=== PATIENT | female | born 1980 | race African-American/Black ===

== ENCOUNTER → 2017-03-28 | Outpatient (CLI) | payer SELFPAY | END | disposition home or self-care (01) | LOC: RAD 09:00 | DX: Z3A.21 21 weeks gestation of pregnancy (principal); D25.1 Intramural leiomyoma of uterus; O09.90 Supervision of high risk pregnancy, unspecified, unspecified trimester; O99.210 Obesity complicating pregnancy, unspecified trimester; O34.29 Maternal care due to uterine scar from other previous surgery | CPT/HCPCS: 76811 ==

== ENCOUNTER → 2017-04-26 | Outpatient (CLI) | payer SELFPAY | END | disposition home or self-care (01) | LOC: RAD 09:00 | DX: D21.9 Benign neoplasm of connective and other soft tissue, unspecified (principal); Z3A.25 25 weeks gestation of pregnancy; O09.90 Supervision of high risk pregnancy, unspecified, unspecified trimester; O99.210 Obesity complicating pregnancy, unspecified trimester | CPT/HCPCS: 76816 ==

== ENCOUNTER 2017-08-03 08:30 | Inpatient (IN) | payer OTHER ==
[2017-08-03] VITALS (7 sets, daily range): BP systolic 127–152; BP diastolic 78–93
[~2017-08-03] VITALS: Ht 165.1 cm; Wt 104.5 kg
[~2017-08-03 08:30] MED LIST: PRENATAL TABLE1 EAC3 PO
[2017-08-03 10:21] LABS: BASOPHIL (%) 0.3 % (0-1); EOSINOPHIL (%) 0.7 % (0-5); EOSINOPHIL COUNT 0.1 K/uL (0-0.3); HEMATOCRIT 39.6 % (36.0-46.0); HEMOGLOBIN 13.3 G/DL (11.9-15.5); IMMATURE GRANULOCYTE (%) 0.8 % (0.0-0.7); LYMPHOCYTE (%) 20.1 % (15-42); LYMPHOCYTE COUNT 1.5 K/uL (1.0-2.8); MCH 29.2 PG (29.0-34.0); MCHC 33.6 G/DL (30.0-36.0); MONOCYTE (%) 8.8 % (3-12); MONOCYTE COUNT 0.7 K/uL (0-0.8); NEUTROPHIL (%) 69.3 % (45-76); NEUTROPHIL COUNT 5.3 K/uL (1.8-6.4); PLATELET COUNT 184 K/uL (156-360); RBC DIS.WIDTH-CV 14.5 % (11.8-14.6); RBC DIS.WIDTH-SD 46.2 % (39-53); RED BLOOD COUNT 4.55 M/uL (3.80-5.20); WHITE BLOOD COUNT 7.7 K/uL (4.1-10.2)
[2017-08-04 00:05] VITALS: BP 128/76
[2017-08-04 02:48] VITALS: BP 136/80
[2017-08-04 03:57] LABS: BASOPHIL (%) 0.2 % (0-1); EOSINOPHIL (%) 0 % (0-5); HEMATOCRIT 35.6 % (36.0-46.0); HEMOGLOBIN 11.9 G/DL (11.9-15.5); IMMATURE GRANULOCYTE (%) 0.7 % (0.0-0.7); LYMPHOCYTE (%) 14.4 % (15-42); LYMPHOCYTE COUNT 1.8 K/uL (1.0-2.8); MCHC 33.4 G/DL (30.0-36.0); MCV 86.8 FL (83-99); MONOCYTE (%) 5.5 % (3-12); MONOCYTE COUNT 0.7 K/uL (0-0.8); NEUTROPHIL (%) 79.2 % (45-76); PLATELET COUNT 181 K/uL (156-360); RBC DIS.WIDTH-CV 14.3 % (11.8-14.6); WHITE BLOOD COUNT 12.6 K/uL (4.1-10.2)
[2017-08-04 04:07] LABS: CHLORIDE 103 mEq/L (99-109); POTASSIUM 3.8 mEq/L (3.7-5.4); SODIUM 135 mEq/L (136-147)
[2017-08-04 04:10] LABS: GLUCOSE 109 mg/dL (70-99); TOTAL PROTEIN 5.9 g/dL (6.4-8.3)
[2017-08-04 04:12] LABS: TOTAL BILIRUBIN 0.4 mg/dL (0.0-1.0)
[2017-08-04 04:13] LABS: ALKALINE PHOSPHATASE 133 IU/L (3-129); CREATININE 0.7 mg/dL (0.6-1.3); GFR ESTIMATE (CALCULATED) > 59 mL/min/
[2017-08-04 04:14] LABS: UREA NITROGEN (BUN) 7 mg/dL (9-23)
[2017-08-04 04:15] LABS: AST (GOT) 20 IU/L (2-34)
[2017-08-04 04:16] LABS: ALT (GPT) 9 IU/L (3-49)
[2017-08-04 07:39] VITALS: BP 157/84
[2017-08-04 10:54] VITALS: BP 119/72
[2017-08-04 15:00] VITALS: BP 129/74
[2017-08-04 21:28] VITALS: BP 118/70
[2017-08-05 07:34] VITALS: BP 137/95
[2017-08-05 12:11] VITALS: BP 143/84
[2017-08-05 15:21] VITALS: BP 140/83
[2017-08-05 19:00] VITALS: BP 139/93
[2017-08-05 22:56] VITALS: BP 133/77
[2017-08-06] VITALS (9 sets, daily range): BP systolic 130–175; BP diastolic 77–88
[2017-08-07 03:25] VITALS: BP 156/95
[2017-08-07 07:41] VITALS: BP 138/99
[2017-08-07] MEDS ORDERED: ENDOCET 5-3251 EACH PO (11:34)
[2017-08-07] MEDS ORDERED: IBUPROFEN800 MG PO (11:34)
[2017-08-07 13:38] VITALS: BP 157/99
[2017-08-07 14:57] VITALS: BP 149/94
== END 2017-08-07 18:15 | disposition home or self-care (01) | DRG 765 ==
LOC: 2SOUTH 08:30 → 2WEST 09:08 → 2SOUTH 09:48 → 2WEST 08-07 18:15
PROVIDERS: Obstetrics & Gynecology
PROC: 10D00Z1 Extraction of Products of Conception, Low, Open Approach (ICD-10-PCS; principal; 2017-08-03)
DX: O34.29 Maternal care due to uterine scar from other previous surgery (principal); O34.13 Maternal care for benign tumor of corpus uteri, third trimester; D25.9 Leiomyoma of uterus, unspecified; O99.02 Anemia complicating childbirth; D62 Acute posthemorrhagic anemia; D50.9 Iron deficiency anemia, unspecified; O99.62 Diseases of the digestive system complicating childbirth; K21.9 Gastro-esophageal reflux disease without esophagitis; O99.214 Obesity complicating childbirth; E66.9 Obesity, unspecified; R73.03 Prediabetes; Z68.34 Body mass index [BMI] 34.0-34.9, adult; Z3A.39 39 weeks gestation of pregnancy; Z37.0 Single live birth; K91.89 Other postprocedural complications and disorders of digestive system; K56.7 Ileus, unspecified
CPT/HCPCS: 74177; 80053; 85025; 86850; 86900; 86901; 88307; C1776; J0690; J1100; J1885; J2270; J2274; J2405; J2765; J7120

== ENCOUNTER → 2018-01-26 | Outpatient (CLI) | payer SELFPAY ==
[~2018-01-26] MED LIST changes: +ENDOCET 5-3251 EACH PO; +IBUPROFEN800 MG PO
== END | disposition home or self-care (01) ==
LOC: RAD 12:17
DX: D27.1 Benign neoplasm of left ovary (principal); R93.5 Abnormal findings on diagnostic imaging of other abdominal regions, including retroperitoneum
CPT/HCPCS: 76856